=== PATIENT | male | born 1995 | race African-American/Black ===

== ENCOUNTER 2018-03-02 14:03 | Emergency (ER) | payer SELFPAY ==
[~2018-03-02] VITALS: Ht 165.1 cm; Wt 74.0 kg
[2018-03-02] MEDS ORDERED: ONDANSETRON HCL 4MG/2ML INJ IV STA (14:19)
[2018-03-02] MEDS ORDERED: SODIUM CHLORIDE 0.9% 1,000 ML IV ONE (14:19)
[2018-03-02] MEDS ORDERED: LEVETIRACETAM 500MG PREMIX 100 ML IV ONE (14:30)
[2018-03-02 15:09] LABS: EOSINOPHILS % 0.3 % (0.0-5.0); HEMATOCRIT. 46.1 % (42.0-52.0); LYMPHOCYTES % 34.4 % (20.0-50.0); MEAN CORPUSCULAR HEMOGLOBIN 31.9 pg (28.0-32.0); MEAN CORPUSCULAR VOLUME 98.1 fL (80.0-94.0); MEAN PLATELET VOLUME 9.5 fl (7.4-10.4); MONOCYTES % 7.9 % (2.0-8.0); NEUTROPHILS % 56.4 % (40.0-76.0); PLATELET 143 x1000/uL (130-400); RED CELL DISTRIBUTION WIDTH 12.9 % (11.6-14.6)
[2018-03-02 15:12] LABS: CHLORIDE 106 mEq/L (98-107)
[2018-03-02 15:17] LABS: ETHANOL BLOOD < 10 mg/dL
[2018-03-02 15:19] LABS: AMMONIA 152 uMol/L (<32)
[2018-03-02 15:27] LABS: CREATINE KINASE 129 IU/L (39-308)
[2018-03-02 15:43] LABS: CARBAMAZEPINE < 0.5 ug/mL (4-12); PHENOBARBITAL < 2.1 ug/mL (15.0-40.0); VALPROIC ACID < 3.0 ug/mL (50-100)
[2018-03-02 17:30] VITALS: BP 117/60
== END 2018-03-02 17:30 | disposition home or self-care (01) ==
LOC: ER 14:08
DX: R56.9 Unspecified convulsions (principal); E86.0 Dehydration
CPT/HCPCS: 36415; 80053; 80156; 80165; 80184; 80185; 82140; 82550; 84443; 85025; 96365; 96375; 99284; G0482; J1953; J2405; J7030; Z7610